=== PATIENT | male | born 1955 | race Two or more races ===

== ENCOUNTER → 2019-01-17 | Outpatient (CLI) | payer OTHER ==
[~2019-01-17] MED LIST: ALTACE10 MG PO; HYDROCHLOROTHIA50 MG PO
== END | disposition home or self-care (01) ==
LOC: SONOGRAMA 09:07 → MAMO-SONO 09:15
DX: M25.512 Pain in left shoulder (principal)

== ENCOUNTER 2019-05-11 14:36 | Outpatient (CLI) | payer OTHER | END 2019-05-11 15:00 | disposition home or self-care (01) | LOC: RAD 14:36 | DX: I10 Essential (primary) hypertension (principal) ==

== ENCOUNTER 2019-05-14 09:02 | Outpatient (CLI) | payer OTHER | END 2019-05-14 15:00 | disposition home or self-care (01) | LOC: LAB 09:02 | DX: I10 Essential (primary) hypertension (principal); E13.69 Other specified diabetes mellitus with other specified complication ==

== ENCOUNTER 2021-05-04 15:00 | Outpatient (CLI) | payer OTHER | END 2021-05-04 15:40 | disposition home or self-care (01) | LOC: PPH VACUNA 15:00 | DX: Z23 Encounter for immunization (principal) ==

== ENCOUNTER 2021-11-23 10:18 | Outpatient (CLI) | payer OTHER | END 2021-11-23 10:25 | disposition home or self-care (01) | LOC: RAD 10:18 | PROVIDERS: ATTEND Plastic Surgery Surgery of the Hand | DX: Z01.818 Encounter for other preprocedural examination (principal) ==

== ENCOUNTER → 2023-03-10 | Outpatient (CLI) | payer OTHER | END | disposition home or self-care (01) | LOC: MRI 03-07 08:23 | PROVIDERS: ATTEND Radiology Diagnostic Radiology | DX: M23.301 Other meniscus derangements, unspecified lateral meniscus, left knee (principal) | CPT/HCPCS: 73721 ==

== ENCOUNTER 2023-04-22 10:48 | Outpatient (CLI) | payer OTHER | END 2023-04-22 14:26 | disposition home or self-care (01) | LOC: RAD 10:48 | PROVIDERS: ATTEND Plastic Surgery Surgery of the Hand | DX: Z01.818 Encounter for other preprocedural examination (principal) ==

== ENCOUNTER 2023-08-16 11:23 | Outpatient (CLI) | payer OTHER | END 2023-08-16 11:40 | disposition home or self-care (01) | LOC: SONOGRAMA 11:23 | PROVIDERS: ATTEND Radiology Diagnostic Radiology | DX: N28.1 Cyst of kidney, acquired (principal) ==

== ENCOUNTER 2025-02-07 11:27 | Outpatient (CLI) | payer OTHER | END 2025-02-07 11:35 | disposition home or self-care (01) | LOC: RAD 11:27 | DX: K76.0 Fatty (change of) liver, not elsewhere classified (principal); M54.2 Cervicalgia; M54.6 Pain in thoracic spine; M54.50 Low back pain, unspecified; R10.84 Generalized abdominal pain; K70.0 Alcoholic fatty liver; J32.1 Chronic frontal sinusitis ==

== ENCOUNTER 2025-07-30 09:10 | Outpatient (CLI) | payer OTHER | END 2025-07-30 09:11 | disposition home or self-care (01) | LOC: NUCLEAR 09:10 | PROVIDERS: ATTEND Internal Medicine | DX: I10 Essential (primary) hypertension (principal) ==

== ENCOUNTER 2025-08-19 07:14 | Outpatient (CLI) | payer OTHER | END 2025-08-19 07:15 | disposition home or self-care (01) | LOC: NUCLEAR 07:14 | PROVIDERS: ATTEND Internal Medicine | DX: I20.9 Angina pectoris, unspecified (principal) ==